=== PATIENT | female | born 1940 | race Caucasian/White ===

== ENCOUNTER 2023-06-03 17:40 | Inpatient (IN) | payer MEDICARE, OTHER ==
[~2023-06-03] VITALS: Ht 175.3 cm; Wt 100.0 kg
[2023-06-03 19:32] LABS: BASOPHILS % (AUTO) 0.4 % (0-1); EOSINOPHILS % (AUTO) 0.1 % (0-6); HEMATOCRIT 37.7 % (35.0-45.0); LYMPHOCYTES # (AUTO) 0.4 X10'3 (1.1-4.8); LYMPHOCYTES % (AUTO) 10.5 % (21-51); MEAN CORPUSCULAR HEMOGLOBIN 33.7 PG (27.0-31.0); MEAN CORPUSCULAR HGB CONC 34.5 g/dL (33.0-36.5); MEAN CORPUSCULAR VOLUME 97.5 FL (78-98); MEAN PLATELET VOLUME 7.1 FL (7.4-10.4); MONOCYTES # (AUTO) 0.5 X10'3 (0-0.9); NEUTROPHILS # (AUTO) 3.2 X10'3 (1.8-7.7); PLATELET COUNT 133 X10'3 (140-440); RED BLOOD COUNT 3.87 X10'6 (4.20-5.60); RED CELL DISTRIBUTION WIDTH 13.3 % (11.5-14.5); WHITE BLOOD COUNT 4.1 X10'3 (4.5-11.0)
[2023-06-03 19:45] LABS: ALANINE AMINOTRANSFERASE 23 U/L (12-78); ALBUMIN 3.5 G/DL (3.4-5.0); ALBUMIN/GLOBULIN RATIO 1.1 (1.1-1.5); ALKALINE PHOSPHATASE 49 IU/L (46-116); ANION GAP 7 (8-16); ASPARTATE AMINO TRANSFERASE 27 U/L (10-37); BILIRUBIN,TOTAL 0.8 MG/DL (0.1-1.0); BLOOD UREA NITROGEN 15 MG/DL (7-18); BUN/CREATININE RATIO 17.9 (10.0-20.0); CALCIUM 9.8 MG/DL (8.5-10.1); CHLORIDE 104 MMOL/L (99-107); CREATININE 0.84 MG/DL (0.40-0.90); GLUCOSE 161 MG/DL (70-104); POTASSIUM 3.5 MMOL/L (3.5-5.1); SODIUM 138 MMOL/L (135-145); TOTAL CARBON DIOXIDE 27.5 MMOL/L (24-32); TOTAL PROTEIN 6.7 G/DL (6.4-8.2); eGFR 65 ML/MIN
[2023-06-03 19:52] LABS: PRO BRAIN NATRIURETIC PEPTIDE 2729 PG/ML (0-450)
[2023-06-03 21:50] LABS: BILIRUBIN,URINE NEGATIVE (Neg); CLARITY,URINE SLIGHTLY CLOUDY (Clear); COLOR,URINE YELLOW (Yellow); GLUCOSE, URINE NEGATIVE (Neg); KETONES,URINE NEGATIVE (Neg); LEUKOCYTE ESTERASE ,URINE SMALL (Neg); NITRITES, URINE POSITIVE (Neg); OCCULT BLOOD,URINE TRACE-INTACT (Neg); PH,URINE 5.5 (4.8-8.0); PROTEIN,URINE NEGATIVE (Neg); UROBILINOGEN,URINE 0.2 E.U/dL (0.2-1.0)
[2023-06-03 21:53] LABS: UA COLLECTION TYPE FOLEY CATH
[2023-06-03 21:56] LABS: WBC,URINE 30-50 /HPF (0-4)
[2023-06-03 21:59] LABS: BACTERIA,URINE 4+ /HPF (Neg); MUCUS STRANDS FEW /LPF (Neg); SQUAMOUS EPITHELIAL CELL,UR FEW /LPF (FEW)
[2023-06-03] MEDS ORDERED: CefTRIAXone/D5W-Rocephin 1gm 50 ML IV SCH (22:00)
[2023-06-03 22:08] LABS: URINE AMPHETAMINE SCREEN NEGATIVE (Neg); URINE BARBITUATE SCREEN NEGATIVE (Neg); URINE BENZODIAZEPINES SCREEN NEGATIVE (Neg); URINE CANNABINOID SCREEN NEGATIVE (Neg); URINE COCAINE SCREEN NEGATIVE (Neg); URINE METHADONE SCREEN NEGATIVE (Neg); URINE OPIATE SCREEN NEGATIVE (Neg); URINE PHENCYCLIDINE SCREEN NEGATIVE (Neg)
[2023-06-03] MEDS ORDERED: CefTRIAXone 2gm/D5W 50ml BAG 50 ML IV ONE (22:15)
[2023-06-03] MEDS ORDERED: mag hydrox/Alum hydrox/simeth 30ml oral suspension PO PRN (22:35)
[2023-06-03] MEDS ORDERED: potassium Cl 20 mEq SR tablet PO PRN ×2 (22:35)
[2023-06-03] MEDS ORDERED: normal saline 1000ml 1,000 ML IV SCH (22:35)
[2023-06-03] MEDS ORDERED: magnesium 4gm in 100ml NS 100 ML IV PRN (22:35)
[2023-06-03] MEDS ORDERED: magnesium 2GM in 50ml NS 50 ML IV PRN (22:35)
[2023-06-03] MEDS ORDERED: potassium Cl 40MEQ/1/2NS 520ml 520 ML IV PRN (22:35)
[2023-06-03] MEDS ORDERED: magnesium Cl slow-release 64mg tablet PO PRN (22:35)
[2023-06-03] MEDS ORDERED: ondansetron/PF 4mg/2ml inj IV PRN (22:35)
[2023-06-03] MEDS ORDERED: magnesium hydroxide 30ml (MOM) UD suspension PO PRN (22:35)
[2023-06-03] MEDS ORDERED: aspirin 325mg tablet, delayed-release (Ecotrin) PO ONE (22:55)
[2023-06-03] MEDS: acetaminophen 325mg tablet PO PRN (23:08)
--- NOTE | 2023-06-04 02:38 | NUR ---
PT REPOSITIONED IN BED, PROVIDED WARM BLANKETS, NEW IV START INITIATED, MORPHINE PER ORDERS GIVEN FOR NECK HEAD, BACK PAIN 06/10
[2023-06-04] MEDS: K and/or MAG REPLACEMENT MC SCH ×2 (08:00→20:00)
[2023-06-04 08:01] LABS: BASOPHILS % (AUTO) 0.5 % (0-1); EOSINOPHILS % (AUTO) 0.1 % (0-6); HEMATOCRIT 36.1 % (35.0-45.0); HEMOGLOBIN 12.5 g/dl (12.0-16.0); LYMPHOCYTES # (AUTO) 0.8 X10'3 (1.1-4.8); LYMPHOCYTES % (AUTO) 22.5 % (21-51); MEAN CORPUSCULAR HEMOGLOBIN 33.7 PG (27.0-31.0); MEAN CORPUSCULAR HGB CONC 34.6 g/dL (33.0-36.5); MEAN CORPUSCULAR VOLUME 97.4 FL (78-98); MEAN PLATELET VOLUME 6.9 FL (7.4-10.4); MONOCYTES # (AUTO) 0.6 X10'3 (0-0.9); MONOCYTES % (AUTO) 17.6 % (2-12); NEUTROPHILS # (AUTO) 2.1 X10'3 (1.8-7.7); NEUTROPHILS % (AUTO) 59.3 % (42-75); PLATELET COUNT 120 X10'3 (140-440); RED CELL DISTRIBUTION WIDTH 13.5 % (11.5-14.5); WHITE BLOOD COUNT 3.5 X10'3 (4.5-11.0)
[2023-06-04 08:20] LABS: ALANINE AMINOTRANSFERASE 21 U/L (12-78); ALBUMIN 3.2 G/DL (3.4-5.0); ALKALINE PHOSPHATASE 47 IU/L (46-116); ANION GAP 9 (8-16); ASPARTATE AMINO TRANSFERASE 32 U/L (10-37); BILIRUBIN,TOTAL 0.7 MG/DL (0.1-1.0); BLOOD UREA NITROGEN 15 MG/DL (7-18); CHLORIDE 103 MMOL/L (99-107); CREATININE 0.88 MG/DL (0.40-0.90); GLUCOSE 149 MG/DL (70-104); MAGNESIUM 1.1 MG/DL (1.5-2.4); POTASSIUM 3.5 MMOL/L (3.5-5.1); SODIUM 138 MMOL/L (135-145); TOTAL CARBON DIOXIDE 26.3 MMOL/L (24-32); TOTAL PROTEIN 6.3 G/DL (6.4-8.2); eCRCL 50 ML/MIN; eGFR 61 ML/MIN
[2023-06-04] MEDS: aspirin 81mg, enteric-coated 1 TAB TABLET.DR PO SCH (08:21)
[2023-06-04] MEDS: docusate sod 100mg capsule PO SCH ×2 (08:21→20:00)
[2023-06-04 08:45] LABS: PLATELET ESTIMATE DECREASED; TOTAL CELLS COUNTED 100
[2023-06-04 08:46] LABS: ELLIPTOCYTES FEW
[2023-06-04 11:30] VITALS: BP 135/66; PULSE 87; RESP 16; TEMP 98.9; O2SAT 96
[2023-06-04] MEDS ORDERED: CLOP75TA34 PO (13:00)
[2023-06-04] MEDS ORDERED: ATOR40TA72 PO (13:00)
[2023-06-04] MEDS ORDERED: LOSA25TA41 PO (13:00)
[2023-06-04] MEDS ORDERED: losartan 25mg tablet PO SCH ×2 (14:10→16:40)
--- NOTE | 2023-06-04 16:47 | NUR ---
ANY QUESTIONS PLEASE CALL LEON, IN DEMOGRAPHICS,
[2023-06-04] MEDS: acetaminophen 325mg tablet PO PRN ×2 (16:49→22:55)
--- NOTE | 2023-06-04 17:16 | NUR ---
COVERED NURSE FOR LUNCH. PT. STATED HER NEUROLOGIST , HAS NOT SEEN NEUROLOGIST SINCE 2019. STATED RIGHT SIDED PARTIALLY NUMB FEELING IS ACCOMPANIED BY HEAVINESS. 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 AT BEDSIDE, STATED TAKES NSAIDS FOR R ARM HEAVINESS/PAIN. REPORTED TO DIRECTOR CPG WHO HAD RETURNED FROM LUNCH.
[2023-06-04] MEDS: normal saline 1000ml 1,000 ML IV SCH (18:30)
[2023-06-04] MEDS ORDERED: CefTRIAXone/D5W-Rocephin 1gm 50 ML IV SCH (22:00)
--- NOTE | 2023-06-04 22:30 | NUR ---
Patient in room ORTHO 4022. I have received report from Rehana HARO from the ER and had the opportunity to ask questions. Several questions were unable to be answered and several things that were needed to be done before I assumed patient care. Rehana Agreed to do them and then will bring patient up to the room.
--- NOTE | 2023-06-05 02:50 | NUR ---
Patient in room ORTHO 4022. I have received report from Nicole and had the opportunity to ask questions and assume patient care.
--- NOTE | 2023-06-05 02:55 | NUR ---
Problems reprioritized. Patient report given, questions answered & plan of care reviewed with Savannah Cottrell RN.
[2023-06-05 06:00] VITALS: BP 131/52; PULSE 82; RESP 16; TEMP 97.4; O2SAT 95
[2023-06-05 06:57] LABS: ALANINE AMINOTRANSFERASE 25 U/L (12-78); ALBUMIN 2.9 G/DL (3.4-5.0); ALBUMIN/GLOBULIN RATIO 0.9 (1.1-1.5); ALKALINE PHOSPHATASE 46 IU/L (46-116); ANION GAP 7 (8-16); ASPARTATE AMINO TRANSFERASE 38 U/L (10-37); BILIRUBIN,TOTAL 0.7 MG/DL (0.1-1.0); BLOOD UREA NITROGEN 22 MG/DL (7-18); BUN/CREATININE RATIO 25.3 (10.0-20.0); CALCIUM 8.7 MG/DL (8.5-10.1); CHLORIDE 105 MMOL/L (99-107); CREATININE 0.87 MG/DL (0.40-0.90); GLUCOSE 136 MG/DL (70-104); MAGNESIUM 2.3 MG/DL (1.5-2.4); POTASSIUM 3.7 MMOL/L (3.5-5.1); SODIUM 138 MMOL/L (135-145); TOTAL CARBON DIOXIDE 25.8 MMOL/L (24-32); eCRCL 50 ML/MIN; eGFR 62 ML/MIN
[2023-06-05 07:10] LABS: BASOPHILS % (AUTO) 0.9 % (0-1); EOSINOPHILS % (AUTO) 0.4 % (0-6); HEMATOCRIT 35.2 % (35.0-45.0); HEMOGLOBIN 12.1 g/dl (12.0-16.0); LYMPHOCYTES # (AUTO) 0.6 X10'3 (1.1-4.8); LYMPHOCYTES % (AUTO) 22.6 % (21-51); MEAN CORPUSCULAR HEMOGLOBIN 33.6 PG (27.0-31.0); MEAN CORPUSCULAR HGB CONC 34.4 g/dL (33.0-36.5); MEAN CORPUSCULAR VOLUME 97.6 FL (78-98); MEAN PLATELET VOLUME 7.1 FL (7.4-10.4); MONOCYTES # (AUTO) 0.5 X10'3 (0-0.9); MONOCYTES % (AUTO) 17.4 % (2-12); NEUTROPHILS # (AUTO) 1.7 X10'3 (1.8-7.7); NEUTROPHILS % (AUTO) 58.7 % (42-75); PLATELET COUNT 107 X10'3 (140-440); RED BLOOD COUNT 3.61 X10'6 (4.20-5.60); RED CELL DISTRIBUTION WIDTH 13.3 % (11.5-14.5); WHITE BLOOD COUNT 2.9 X10'3 (4.5-11.0)
[2023-06-05] MEDS: K and/or MAG REPLACEMENT MC SCH (07:37)
[2023-06-05 07:49] VITALS: RESP 14; O2SAT 95
[2023-06-05] MEDS: aspirin 81mg, enteric-coated 1 TAB TABLET.DR PO SCH (07:49)
[2023-06-05] MEDS: docusate sod 100mg capsule PO SCH (07:50)
[2023-06-05] MEDS ORDERED: clopidogrel 75mg tablet PO SCH (08:00)
[2023-06-05] MEDS ORDERED: atorvastatin 20mg tablet PO SCH (08:00)
[2023-06-05 08:15] VITALS: RESP 16; O2SAT 95
[2023-06-05] MEDS: normal saline 1000ml 1,000 ML IV SCH (08:33)
[2023-06-05 08:46] LABS: NUCLEATED RED BLOOD CELLS 2 /100WBC (0-0); TOTAL CELLS COUNTED 100
[2023-06-05 08:50] LABS: PLATELET ESTIMATE DECREASED
[2023-06-05] MEDS: acetaminophen 325mg tablet PO PRN (09:58)
[2023-06-05 10:00] VITALS: BP 107/49; PULSE 86; RESP 18; TEMP 97.5; O2SAT 97
[2023-06-05] MEDS ORDERED: LEVO-65 PO (11:39)
--- NOTE | 2023-06-05 14:53 | NUR ---
PRESSURE ULCER EDUCATION: DEFINITION: A pressure ulcer is an area of skin that breaks down when you stay in one position too long. The constant pressure against the skin reduces the blood flow to that area and the affected tissue dies. CAUSES: "Being bedridden or in a wheelchair "Fragile skin "Having a chronic condition, such as diabetes or vascular disease "Inability to move certain parts of your body without assistance "Older age "Incontinence of urine or stool SYMPTOMS: "A reddened area that DOES NOT turn white when pressed on - this can be the beginning of a pressure ulcer "A blister, deep sore or a crater - these can be advanced pressure ulcers FIRST AID: "Relieve the pressure on this area "Keep the area clean and dry "Call your primary doctor if you see any of the above symptoms "DO NOT massage the area "DO NOT use a donut shaped or ring shaped pillow- these actually interfere with the blood flow and cause complications PREVENTION: "Check for pressure ulcers everyday "Change position at least every two hours to relieve pressure "Use items that help relieve pressure- pillows, sheepskin, foam padding, and powders. "Keep skin clean and dry "Eat healthy well balanced meals "Exercise daily IF YOU SEE ANY OF THESE SYMPTOMS WHILE IN THE HOSPITAL - TELL YOUR NURSE IMMEDIATELY. IF YOU SEE ANY OF THESE SYMPTOMS WHILE AT HOME OR HAVE ANY QUESTIONS OR CONCERNS ABOUT PRESSURE ULCERS - CALL YOUR PRIMARY DOCTOR IMMEDIATELY. Addendum: 06/05/23 at 1453 by Vernell Joyce LVN Amended: Links added.
--- NOTE | 2023-06-05 15:59 | NUR ---
Reviewed discharge instructions with patient and granddaughter. Patient is alert, oriented and verbalized understanding. Patient was dressed with the assistance of a nursing staffing coordinator. Patient was toileted prior to discharge (post pineda cath removal). Patient was wheeled downstairs to be driven home by her granddaughter.
== END 2023-06-05 16:15 | disposition home or self-care (01) | DRG 689 ==
LOC: ER 17:40 → ED HOLD 22:35 → ORTHO 4S 06-04 23:20
PROVIDERS: ADMIT Internal Medicine; ATTEND Internal Medicine
DX: N30.00 Acute cystitis without hematuria (principal); G93.41 Metabolic encephalopathy; C79.51 Secondary malignant neoplasm of bone; R65.10 Systemic inflammatory response syndrome (SIRS) of non-infectious origin without acute organ dysfunction; Z66 Do not resuscitate; C50.912 Malignant neoplasm of unspecified site of left female breast; B96.20 Unspecified Escherichia coli [E. coli] as the cause of diseases classified elsewhere; D72.819 Decreased white blood cell count, unspecified; I25.10 Atherosclerotic heart disease of native coronary artery without angina pectoris; I25.2 Old myocardial infarction; Z85.3 Personal history of malignant neoplasm of breast; Z91.81 History of falling; Z92.21 Personal history of antineoplastic chemotherapy
CPT/HCPCS: 36415; 70450; 71045; 80053; 80305; 80320; 81001; 83605; 83735; 83880; 84145; 84484; 85007; 85025; 87040; 87077; 87081; 87088; 87186; 93005; 97161; 97530; 97535; 99285; C1758; G0378; J0696; J3475; J7030

== ENCOUNTER 2023-07-24 17:46 | Emergency (ER) | payer MEDICARE, OTHER ==
[~2023-07-24] VITALS: Ht 157.5 cm; Wt 65.4 kg
[~2023-07-24 17:46] MED LIST: ATOR40TA72 PO; CLOP75TA34 PO; LOSA25TA41 PO
[2023-07-24] MEDS ORDERED: LOSA50TA64 PO (19:03)
[2023-07-24] MEDS ORDERED: CARV3.1244 PO (19:03)
[2023-07-24] MEDS ORDERED: PALB75CA PO (19:03)
--- NOTE | 2023-07-24 19:03 | NUR ---
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
[2023-07-24 19:22] LABS: APTT 25 SECONDS (22-32); BASOPHILS % (AUTO) 0.8 % (0-1); HEMATOCRIT 36.3 % (35.0-45.0); HEMOGLOBIN 12.5 g/dl (12.0-16.0); LYMPHOCYTES # (AUTO) 1.2 X10'3 (1.1-4.8); LYMPHOCYTES % (AUTO) 59.3 % (21-51); MEAN CORPUSCULAR HEMOGLOBIN 33.2 PG (27.0-31.0); MEAN CORPUSCULAR HGB CONC 34.4 g/dL (33.0-36.5); MEAN CORPUSCULAR VOLUME 96.5 FL (78-98); MEAN PLATELET VOLUME 7.1 FL (7.4-10.4); MONOCYTES # (AUTO) 0.2 X10'3 (0-0.9); MONOCYTES % (AUTO) 10.1 % (2-12); NEUTROPHILS # (AUTO) 0.6 X10'3 (1.8-7.7); NEUTROPHILS % (AUTO) 27.8 % (42-75); PLATELET COUNT 119 X10'3 (140-440); PROTHROMBIN TIME 10.8 SECONDS (9.0-12.0); RED BLOOD COUNT 3.76 X10'6 (4.20-5.60); RED CELL DISTRIBUTION WIDTH 14.1 % (11.5-14.5); WHITE BLOOD COUNT 2.1 X10'3 (4.5-11.0)
[2023-07-24 19:43] LABS: ALANINE AMINOTRANSFERASE 38 U/L (12-78); ALBUMIN/GLOBULIN RATIO 1.4 (1.1-1.5); ALKALINE PHOSPHATASE 55 IU/L (46-116); ANION GAP 6 (8-16); ASPARTATE AMINO TRANSFERASE 36 U/L (10-37); BILIRUBIN,TOTAL 0.6 MG/DL (0.1-1.0); BLOOD UREA NITROGEN 38 MG/DL (7-18); BUN/CREATININE RATIO 24.2 (10.0-20.0); CALCIUM 9.7 MG/DL (8.5-10.1); CHLORIDE 104 MMOL/L (99-107); CREATININE 1.57 MG/DL (0.40-0.90); GLUCOSE 111 MG/DL (70-104); POTASSIUM 4.6 MMOL/L (3.5-5.1); SODIUM 140 MMOL/L (135-145); TOTAL CARBON DIOXIDE 29.8 MMOL/L (24-32); TOTAL PROTEIN 6.8 G/DL (6.4-8.2); eCRCL 21 ML/MIN; eGFR 31 ML/MIN
--- NOTE | 2023-07-24 19:49 | NUR ---
Per [facility] [employer]ist, transport to be here in approx 45 min to 1 hour.
[2023-07-24 19:50] LABS: MAGNESIUM 1.7 MG/DL (1.5-2.4); PRO BRAIN NATRIURETIC PEPTIDE 298 PG/ML (0-450)
--- NOTE | 2023-07-24 20:01 | NUR ---
SBAR REPORT CALLED TO CORRIE AT [facility] ER AND UPDATED WITH ETA WELL.
[2023-07-24 20:02] VITALS: TEMP 98.7
[2023-07-24 20:22] VITALS: BP 111/53; PULSE 77; RESP 17; O2SAT 99
--- NOTE | 2023-07-24 20:47 | NUR ---
sbar report to [facility] transport crew to go to [facility] ED to ED transfer. pt a&ox4, vss, no s/s of distress.
[2023-07-24 21:06] LABS: TOTAL CELLS COUNTED 100
[2023-07-24 21:07] LABS: PLATELET ESTIMATE DECREASED
== END 2023-07-24 20:47 ==
LOC: ER 17:47
DX: S00.03XA Contusion of scalp, initial encounter (principal); E11.9 Type 2 diabetes mellitus without complications; Z88.6 Allergy status to analgesic agent; Z88.2 Allergy status to sulfonamides; Z79.899 Other long term (current) drug therapy; W18.39XA Other fall on same level, initial encounter; Y93.89 Activity, other specified; Y92.89 Other specified places as the place of occurrence of the external cause; Y99.8 Other external cause status
CPT/HCPCS: 36415; 70450; 71045; 72125; 80053; 82948; 83735; 83880; 84484; 85007; 85025; 85610; 85730; 93005; 99291; J7030; 81003